=== PATIENT | male | born 1955 | race Caucasian/White ===

== ENCOUNTER 2023-06-30 16:01 | Emergency (ER) | payer OTHER ==
[~2023-06-30] VITALS: Ht 182.9 cm; Wt 99.8 kg
== END 2023-06-30 20:46 | disposition home or self-care (01) ==
LOC: ER 16:01
DX: M50.322 Other cervical disc degeneration at C5-C6 level (principal)
CPT/HCPCS: 72040; 96365; 96372; 99284; J1885; J2270